=== PATIENT | female | born 1990 | race Hispanic/Latino ===

== ENCOUNTER 2024-03-21 17:32 | Emergency (ER) | payer BC, SELFPAY ==
[2024-03-21 17:58] VITALS: BP 107/69; PULSE 106; RESP 16; TEMP 37.6; O2SAT 99
--- NOTE | 2024-03-21 18:15 | ED.EAR ---
HPI - Ear Problem General Chief complaint: Ear Stated complaint: Left Ear Irritation Time Seen by Provider: 03/21/24 18:15 Source: patient, RN notes reviewed and old records reviewed Mode of arrival: ambulatory Limitations: no limitations History of Present Illness HPI Narrative: Patient presents with complaints of left ear pain that has been present since today. She reports that pain is worse when she touches the ear. Denies any fever, chills, sweats. Denies any associated runny nose or sore throat. Denies any injury or trauma. Voices no other concerns or complaints at this time Related Data Allergies Allergy/AdvReac Type Severity Reaction Status Date / Time No Known Allergies Allergy Unverified 06/17/17 19:26 Review of Systems Review of Systems: All systems reviewed & are unremarkable except as noted in HPI and below Constitutional: Constitutional: Reports no additional constitutional complaints ENT: Reports system reviewed and no additional complaints, except as documented, Reports as per HPI and Reports otalgia Cardiovascular: Cardiovascular: Reports no additional cardiovascular complaints Respiratory: Respiratory: Reports no additional respiratory complaints Gastrointestinal: Gastrointestinal: Reports no additional gastrointestinal complaints PMFSH Comments At the time of my signature, I reviewed and agree with the nursing past medical, surgical, social, and family history. There is no relevant family history pertinent to the patient complaint. Exam Const: General: cooperative, no acute distress, alert and awake Orientation/consciousness: oriented to person, oriented to place and oriented to time HENMT: Head: normal to inspection Ears: Abnormal EAC present erythema on the left, edema on the left and EAC tenderness on the left Resp: Effort & Inspection: normal respiratory effort and able to speak in complete sentences Auscultation: clear to auscultation bilaterally, no crackles, no rales, no rhonchi and no wheezes Cardio: Palpation: normal PMI Rate: regular rate Rhythm: regular rhythm Heart sounds: S1 normal heart sound present and S2 normal heart sound present Neuro: General: oriented to person, oriented to place and oriented to time Cranial nerves: Yes CN's II-XII intact bilaterally Psych: Appearance: grossly normal Thought process: Normal thought process present Insight: Good insight present (Psych) Judgement: Good judgement present (Psych) Course Course Level of Care: Express Care Visit Vital Signs Vital signs: Vital Signs Temperature 99.7 F H 03/21/24 17:58 Pulse Rate 106 H 03/21/24 17:58 Respiratory Rate 16 03/21/24 17:58 Blood Pressure 107/69 03/21/24 17:58 Pulse Oximetry 99 03/21/24 17:58 Oxygen Delivery Room Air 03/21/24 17:58 Temperature 99.7 F H 03/21/24 17:58 Pulse Rate 106 H 03/21/24 17:58 Respiratory Rate 16 03/21/24 17:58 Blood Pressure 107/69 03/21/24 17:58 Pulse Oximetry 99 03/21/24 17:58 Oxygen Delivery Room Air 03/21/24 17:58 Reviewed Medical Decision Making MDM Narrative Medical decision making narrative: Exam consistent with otitis externa. Treat appropriately Discharge instructions reviewed with patient, as well as provided in writing per nursing staff. The instructions also include specific and strict return/GO TO THE ER as well as f/u information. All questions have been answered, and the patient deny any further questions with discharge and discharge plan. Some parts of this dictation were generated by voice recognition software and may contain typographical and/or grammatical inaccuracies. Vital Signs Vital Signs: Vital Signs Temperature 99.7 F H 03/21/24 17:58 Pulse Rate 106 H 03/21/24 17:58 Respiratory Rate 16 03/21/24 17:58 Blood Pressure 107/69 03/21/24 17:58 Pulse Oximetry 99 03/21/24 17:58 Oxygen Delivery Room Air 03/21/24 17:58 Temperature 99.7 F H 03/21/24 17:58 Pulse Ra
== END 2024-03-21 18:39 | disposition home or self-care (01) ==
PROVIDERS: Emergency Provider Nurse Practitioner Family
DX: H60.312 Diffuse otitis externa, left ear (principal)
CPT/HCPCS: 99203; G0463